=== PATIENT | male | born 1980 ===

== ENCOUNTER 2022-05-28 21:15 | Emergency (ER) | payer SELFPAY ==
--- NOTE | 2022-05-28 21:17 | XRR_ITS ---
PROCEDURE INFORMATION: Exam: XR Chest Exam date and time: 05/28/2022 9:26 PM Age: 41 years old Clinical indication: Pain; Other: Generalized cp TECHNIQUE: Imaging protocol: Radiologic exam of the chest. Views: 1 view. COMPARISON: No relevant prior studies available. FINDINGS: Lungs: Hypoinflation of the lungs with mild bibasilar atelectasis. Pleural spaces: Unremarkable. No pleural effusion. No pneumothorax. Heart/Mediastinum: Mild apparent cardiomegaly. Bones/joints: Unremarkable. XR/XR chest 1V portable [id number] IMPRESSION: Hypoinflation of the lungs with mild bibasilar atelectasis.
[2022-05-28 21:25] VITALS: BP 153/101; PULSE 101; RESP 20; TEMP 36.9; O2SAT 92; BMI 28.5
--- NOTE | 2022-05-28 21:26 | ECG_ITS ---
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 Measurements Intervals [place] Rate: 98 P: 29 HI: 146 QRS: 61 QRSD: 107 T: 20 QT: 334 QTc: 428 Interpretive Statements SINUS RHYTHM No previous ECG available for comparison Electronically Signed On 05-29-2022 17:31:09 CONFERENCE SPECIALIST by Gunner Ballard M.D. [id number]
--- NOTE | 2022-05-28 21:30 | ED_ITS ---
Documented by User: [email or web address] Hunter 05/29/22 02:11 HPI - Chest Pain General: Chief Complaint: Chest Pain Stated Complaint: Chest Pains Time Seen by Provider: 05/28/22 21:17 History of Present Illness: Patient is a 41-year-old male comes to the ED with chest pain. He has been having intermittent chest pain now for months and says he had chest pain yesterday and the day before and it resolved on its own. Today approximately 2 hours prior to arrival he was sweeping the floor and developed chest pain in the left side of his chest. He rates the pain currently a 7 out of 10. He has not taken any medications today such as his nitro. Pain worsens if he bends over. Denies any other symptoms. Associated symptoms: Deny abdominal pain, dyspnea, fever(s), nausea, palpitations or vomiting Review of Systems Const: Denies: fever(s), chills or fatigue Eyes: Denies: change in vision or eye discomfort ENMT: Denies: throat pain, odynophagia, nasal discharge or nasal congestion Card: Reports: chest pain; Denies: palpitations, edema, swelling of feet/ankles, dyspnea on exertion or orthopnea Resp: Denies: dyspnea, productive cough or non-productive cough GI: Denies: abdominal pain, nausea, vomiting, diarrhea, constipation or hematochezia : Denies: flank pain, difficulty urinating, dysuria or hematuria Musc: Denies: neck pain, back pain or extremity swelling Skin/Breast: Denies: rash or new lesions Neuro: Denies: headache(s), numbness in extremities or weakness in extremities [facility] ED PFSH: Medical History No pertinent family history Surgical History No pertinent past surgical history Physical Exam Const: COMMON NORMALS: patient oriented x3 and alert GENERAL APPEARANCE: cooperative HENMT: COMMON NORMALS: normocephalic HEAD & SCALP: normocephalic MOUTH: Normal oral and palatal mucosa present THROAT: posterior oropharynx normal and uvula midline Neck/C-Spine: COMMON NORMALS: supple GENERAL: Yes normal visual inspection Chest: CHEST: Yes tenderness pectoral muscle on the left with point tenderness laterally (Palpation recreates chest pain) Resp: COMMON NORMALS: normal respiratory effort, No retractions, No use of accessory muscles and clear to auscultation bilaterally AUSCULTATION: clear to auscultation bilaterally Cardio: COMMON NORMALS: regular rate, regular rhythm, S1 normal heart sound present, S2 normal heart sound present, No gallops present (Cardio), No clicks present (Cardio), No murmurs present (Cardio) and Peripheral pulses 2+ throughout RATE: regular rate RHYTHM: regular rhythm HEART SOUNDS: S1 normal heart sound present and S2 normal heart sound present PERIPHERAL PU LSES: Peripheral pulses 2+ throughout GI: COMMON NORMALS: Normal to inspection, nondistended, normoactive bowel sounds present, Soft to palpation, non-tender and no masses PALPATION: Yes Soft to palpation : COMMON NORMALS: Yes no CVA tenderness BLADDER/KIDNEY EXAM: Yes no CVA tenderness Back/Pelvis: COMMON NORMALS: no CVA tenderness Extremity: COMMON NORMALS: normal to inspection Neuro: COMMON NORMALS: patient oriented x3 SENSORIUM/ORIENTATION: Yes alert GAIT: Yes Normal gait present Skin: GENERAL SKIN EXAM: dry skin Course Vital Signs: Vital signs: Vital Signs Temperature 98.4 F 05/28/22 21:25 Pulse Rate 89 05/29/22 01:20 Respiratory Rate 19 H 05/29/22 01:20 Blood Pressure 151/98 05/29/22 01:20 Pulse Oximetry 89 L 05/29/22 01:20 Oxygen Delivery Me thod 05/29/22 00:00 MDM - Chest Pain Medical Decision Making Patient is a 41-year-old male comes to the ED with chest pain. He has been having intermittent chest pain now for months and says he had chest pain yesterday and the day before and it resolved on its own. Today approximately 2 hours prior to arrival he was sweeping the floor and developed chest pain in the left side of his chest. He rates the pain currently a 7 out of 10. Vitals stable. Patient appears nontoxic in no acute distress or pain. Patient has some tenderness to his left pectoralis muscle that reproduces chest pain. The rest of exam is benign. CBC and CMP are unremarkable. Troponins negative. BNP and D-dimer are normal. EKG shows normal sinus rhythm with no ST segment elevation or depression seen. Chest x-ray showed hypoinflation of the lungs. He was given a dose of 324 mg of aspirin and morphine here in the ED. His symptoms did improve some. he was then given a dose of Toradol and a muscle relaxer. Given that chest pain is reproducible with palpation and troponins negative, EKG showing no acute findings and D-dimer normal, patient diagnosed with noncardiac chest pain which is likely musculoskeletal in nature. He was stable for discharge home and sent with a prescription for ibuprofen 800 mg to help with pain. Follow-up with his PCP in the next week for reevaluation. Return to ED precautions given. Patient understood and agreed with plan. Lab Data I reviewed the patient's lab results. 05/28/22 21:38 05/28/22 21:38 Radiology Impressions Chest X-Ray 05/28/22 21: IMPRESSION: Hypoinflation of the lungs with mild bibasilar atelectasis. Laboratory Results WBC 7.1 10^3/uL (4.0-10.0) 05/28/22 21: RBC 5.07 10^6/uL (4.1-5.3) 05/28/22 21: Hgb 15.4 g/dL (11.7-16.6) 05/28/22 21: Hct 43.9 % (42.0-52.0) 05/28/22 21: MCV 86.6 fl (80-94) 05/28/22 21: MCH 30.4 pg (28.0-34.0) 05/28/22 21: MCHC 35.1 g/dL (30.0-36.0) 05/28/22 21: RDW 12.4 % (12.1-15.1) 05/28/22 21: Plt Count 204 10^3/cmm (130-400) 05/28/22 21: MPV 10.4 fL (7.4-10.4) 05/28/22 21: Neut % (Auto) 61.0 % 05/28/22 21: Lymph % (Auto) 30.2 % 05/28/22 21: [place] % (Auto) 7.1 % 05/28/22 21: Eos % (Auto) 1.0 % 05/28/22 21: Baso % (Auto) 0.4 % 02/26/23 21:38 Neut # (Auto) 4.32 10^3/uL (1.8-7.7) 05/28/22 21:38 Lymph # (Auto) 2.1 10^3/uL (0.8-4.8) 05/28/22 21:38 [place] # (Auto) 0.5 10^3/uL (0.2-0.9) 05/28/22 21:38 Eos # (Auto) 0.1 10^3/uL (0.0-0.8) 05/28/22 21:38 Baso # (Auto) 0.0 10^3/uL (0.0-0.1) 05/28/22 21:38 Nucleated RBC % (auto) 0 % 05/28/22 21:38 Nucleated RBCs # 0.0 /100WBC 05/28/22 21:38 D-Dimer <= 0.27 ug/mIFEU (0-0.59) 05/28/22 21:38 Sodium 138 mmol/L (136-145) 05/28/22 21:38 Potassium 3.4 mmol/L (3.5-5.1) L 05/28/22 21:38 Chloride 102 mmol/L (98-107) 05/28/22 21:38 Carbon Dioxide 23 mmol/L (22-29) 05/28/22 21:38 Anion Gap 16.4 (5-19) 05/28/22 21:38 BUN 13 mg/dL (6-20) 05/28/22 21:38 Creatinine 0.5 mg/dL (0.7-1.2) L 05/28/22 21:38 GFR Calculation 181.5 mL/min (90-130) H 05/28/22 21:38 Glucose 118 mg/dL (65-115) H 05/28/22 21:38 Calculated Osmolality 287 mOsm/kg (285-295) 05/28/22 21:38 Calcium 9.0 mg/dL (8.5-10.5) 05/28/22 21:38 Total Bilirubin 0.4 mg/dL (0.15-1.2) 05/28/22 21:38 AST 24 U/L (0-40) 05/28/22 21:38 ALT 29 U/L (0-41) 05/28/22 21:38 Alkaline Phosphatase 135 U/L (40-130) H 05/28/22 21:38 Troponin T Baseline 6 ng/L (0-15) 05/28/22 21:38 Troponin T 120 Minute 6.00 ng/L (0-15) 05/28/22 23:12 Delta Troponin T 0 ABS# (0-10) 05/28/22 23:12 NT-Pro-B Natriuret Pep 36 pg/mL (0-125) 05/28/22 21:38 Total Protein 7.4 g/dL (6.6-8.7) 05/28/22 21:38 Albumin 4.6 g/dL (3.5-5.2) 05/28/22 21:38 Globulin 2.8 g/dL (1.3-4.6) 05/28/22 21:38 EKG Data EKG 1: EKG interpretation date: 05/28/22 EKG interpretation time: 21:25 Interpretation: Sinus rhythm, 98 bpm, no ST segment elevation or depression seen. Discharge Plan Discharge Patient Disposition: Home Clinical Impression: Non-cardiac chest pain Condition: Stable Prescriptions: New ibuprofen 800 mg tablet 800 mg PO Q8H PRN (Reason: pain) Qty: 20 0RF Discharge Orders: Discharge ED (Routine); Ordered 05/29/22 Ordered By: Tevin Villeda Discharge Diet: Regular Discharge Activity: Increase activity as tolerated Patient Instructions: Noncardiac Chest Pain (ED) Activity Restrictions/Additional Instructions: Follow-up with medical provider as directed in the next 5 to 7 days for r eevaluation. Take medications as prescribed. Continue taking all home medications as previously prescribed. Return to the ER or your medical provider if condition worsens. Please read and understand discharge instructions. Thank you for choosing [facility] for your healthcare needs today. Please realize this is an emergency room and that we are providing you with a medical screening exam and this may not be complete and all inclusive of all the testing and or work up that you may need to determine your ailment or severity of your illness. It is very important that you follow up as instructed or that you return to the Emergency Department should you have concerns or if your condi tion changes or worsens in any way. 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 [employer] Documented by User: Laith Campos DO 05/29/22 03:53 HPI - Chest Pain General: Chief Complaint: Chest Pain Stated Complaint: Chest Pains Time Seen by Provider: 05/28/22 21:17 [facility] ED PFSH: Medical History No pertinent family history Surgical History No pertinent past surgical history Course Vital Signs: Vital signs: Vital Signs Temperature 98.4 F 05/28/22 21:25 Pulse Rate 89 05/29/22 01:20 Respiratory Rate 19 H 05/29/22 01:20 Blood Pressure 151/98 05/29/22 01:20 Pulse Oximetry 89 L 05/29/22 01:20 Oxygen Delivery Me thod 05/29/22 00:00 MDM - Chest Pain Medical Decision Making Patient is a 41-year-old male comes to the ED with chest pain. He has been having intermittent chest pain now for months and says he had chest pain yesterday and the day before and it resolved on its own. Today approximately 2 hours prior to arrival he was sweeping the floor and developed chest pain in the left side of his chest. He rates the pain currently a 7 out of 10. Vitals stable. Patient appears nontoxic in no acute distress or pain. Patient has so me tenderness to his left pectoralis muscle that reproduces chest pain. The rest of exam is benign. CBC and CMP are unremarkable. Troponins negative. BNP and D-dimer are normal. EKG shows normal sinus rhythm with no ST segment elevation or depression seen. Chest x-ray showed hypoinflation of the lungs. He was given a dose of 324 mg of aspirin and morphine here in the ED. His symptoms did improve some. he was then given a dose of Toradol and a muscle relaxer. Given that chest pain is reproducible with palpation and troponins negative, EKG showing no acute findings and D-dimer normal, patient diagnosed with noncardiac chest pain which is likely musculoskeletal in nature. He was stable for discharge home and sent with a prescription for ibuprofen 800 mg to help with pain. Follow-up with his PCP in the next week for reevaluation. Return to ED precautions given. Patient understood and agreed with plan. This patient was originally seen by Mr. Ronal PA-C.? I agree with his history, evaluation, and treatment. Lab Data 05/28/22 21:38 05/28/22 21:38 Radiology Impressions Chest X-Ray 05/28/22 21:17 IMPRESSION: Hypoinflation of the lungs with mild bibasilar atelectasis. Laboratory Results WBC 7.1 10^3/uL (4.0-10.0) 05/28/22 21: RBC 5.07 10^6/uL (4.1-5.3) 05/28/22 21: Hgb 15.4 g/dL (11.7-16.6) 05/28/22 21: Hct 43.9 % (42.0-52.0) 05/28/22 21: MCV 86.6 fl (80-94) 05/28/22 21: MCH 30.4 pg (28.0-34.0) 05/28/22 21: MCHC 35.1 g/dL (30.0-36.0) 05/28/22 21: RDW 12.4 % (12.1-15.1) 05/28/22 21: Plt Count 204 10^3/cmm (130-400) 05/28/22 21: MPV 10.4 fL (7.4-10.4) 05/28/22 21: Neut % (Auto) 61.0 % 05/28/22 21: Lymph % (Auto) 30.2 % 05/28/22 21: [place] % (Auto) 7.1 % 05/28/22 21: Eos % (Auto) 1.0 % 05/28/22 21: Baso % (Auto) 0.4 % 05/28/22 21: Neut # (Auto) 4.32 10^3/uL (1.8-7.7) 05/28/22 21: Lymph # (Auto) 2.1 10^3/uL (0.8-4.8) 05/28/22 21:38 [place] # (Auto) 0.5 10^3/uL (0.2-0.9) 05/28/22 21:38 Eos # (Auto) 0.1 10^3/uL (0.0-0.8) 05/28/22 21:38 Baso # (Auto) 0.0 10^3/uL (0.0-0.1) 05/28/22 21:38 Nucleated RBC % (auto) 0 % 05/28/22 21:38 Nucleated RBCs # 0.0 /100WBC 05/28/22 21:38 D-Dimer <= 0.27 ug/mIFEU (0-0.59) 05/28/22 21:38 Sodium 138 mmol/L (136-145) 05/28/22 21:38 Potassium 3.4 mmol/L (3.5-5.1) L 05/28/22 21:38 Chloride 102 mmol/L (98-107) 05/28/22 21:38 Carbon Dioxide 23 mmol/L (22-29) 05/28/22 21:38 Anion Gap 16.4 (5-19) 05/28/22 21:38 BUN 13 mg/dL (6-20) 05/28/22 21:38 Creatinine 0.5 mg/dL (0.7-1.2) L 05/28/22 21:38 GFR Calculation 181.5 mL/min (90-130) H 05/28/22 21:38 Glucose 118 mg/dL (65-115) H 05/28/22 21:38 Calculated Osmolality 287 mOsm/kg (285-295) 05/28/22 21:38 Calcium 9.0 mg/dL (8.5-10.5) 05/28/22 21:38 Total Bilirubin 0.4 mg/dL (0.15-1.2) 05/28/22 21:38 AST 24 U/L (0-40) 05/28/22 21:38 ALT 29 U/L (0-41) 05/28/22 21:38 Alkaline Phosphatase 135 U/L (40-130) H 05/28/22 21:38 Troponin T Baseline 6 ng/L (0-15) 05/28/22 21:38 Troponin T 120 Minute 6.00 ng/L (0-15) 05/28/22 23:12 Delta Troponin T 0 ABS# (0-10) 05/28/22 23:12 NT-Pro-B Natriuret Pep 36 pg/mL (0-125) 05/28/22 21:38 Total Protein 7.4 g/dL (6.6-8.7) 05/28/22 21:38 Albumin 4.6 g/dL (3.5-5.2) 05/28/22 21:38 Globulin 2.8 g/dL (1.3-4.6) 05/28/22 21:38 Discharge Plan Discharge Patient Disposition: Home Clinical Impression: Non-cardiac chest pain Condition: Stable Prescriptions: New ibuprofen 800 mg tablet 800 mg PO Q8H PRN (Reason: pain) Qty: 20 0RF Discharge Orders: Discharge ED (Routine); Ordered 05/29/22 Ordered By: Tevin Villeda Discharge Diet: Regular Discharge Activity: Increase activity as tolerated Patient Instructions: Noncardiac Chest Pain (ED) Activity Restrictions/Additional Instructions: Follow-up with medical provider as directed in the next 5 to 7 days for reevaluation. Take medications as prescribed. Continue taking all home medications as previously prescribed. Return to the ER or your medical provider if condition worsens. Please read and understand discharge instructions. Thank you for choosing [facility] for your healthcare needs today. Please realize this is an emergency room and that we are providing you with a medical screening exam and this may not be complete and all inclusive of all the testing and or work up that you may need to determine your ailment or severity of your illness. It is very important that you follow up as instructed or that you return to the Emergency Department should you have concerns or if your condition changes or worsens in any way. 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
[2022-05-28] MEDS: aspirin 81 mg Chew Tablet 324 MG PO (21:35)
[2022-05-28 21:40] VITALS: RESP 22; O2SAT 90
[2022-05-28] MEDS: morphine 4 mg/mL SDV 1 mL IVP (21:40)
[2022-05-28 21:48] VITALS: BP 136/88; PULSE 100; RESP 22; O2SAT 90
[2022-05-28 21:51] LABS: Basophils % 0.4 %; Eosinophils # 0.1 10^3/uL (0.0-0.8); Hematocrit 43.9 % (42.0-52.0); Hemoglobin 15.4 g/dL (11.7-16.6); Lymphocytes # 2.1 10^3/uL (0.8-4.8); Lymphocytes % 30.2 %; Mean Corpuscular HGB Conc 35.1 g/dL (30.0-36.0); Mean Corpuscular Hemoglobin 30.4 pg (28.0-34.0); Mean Corpuscular Volume 86.6 fl (80-94); Mean Platelet Volume 10.4 fL (7.4-10.4); Monocytes # 0.5 10^3/uL (0.2-0.9); Monocytes % 7.1 %; Neutrophils # 4.32 10^3/uL (1.8-7.7); Nucleated Red Blood Cells % 0 %; Platelet Count 204 10^3/cmm (130-400); Red Blood Count 5.07 10^6/uL (4.1-5.3); Red Cell Distribution Width 12.4 % (12.1-15.1); White Blood Count 7.1 10^3/uL (4.0-10.0)
[2022-05-28 22:13] LABS: Troponin(5th) Baseline 6 ng/L (0-15)
[2022-05-28 22:18] LABS: Alanine Aminotransferase 29 U/L (0-41); Albumin Level 4.6 g/dL (3.5-5.2); Alkaline Phosphatase 135 U/L (40-130); Anion Gap 16.4 (5-19); Aspartate Amino Transferase 24 U/L (0-40); Blood Urea Nitrogen 13 mg/dL (6-20); Carbon Dioxide 23 mmol/L (22-29); Chloride 102 mmol/L (98-107); Globulin 2.8 g/dL (1.3-4.6); Glomerular Filtration Rate 181.5 mL/min (90-130); Glucose 118 mg/dL (65-115); NT Pro B Type Natriuretic Pept 36 pg/mL (0-125); Osmolality Calculated 287 mOsm/kg (285-295); Potassium 3.4 mmol/L (3.5-5.1); Sodium 138 mmol/L (136-145); Total Bilirubin 0.4 mg/dL (0.15-1.2); Total Protein 7.4 g/dL (6.6-8.7)
[2022-05-28 23:11] LABS: D Dimer <= 0.27 ug/mIFEU (0-0.59)
[2022-05-28] MEDS: ipratropium-albuterol 3 mL Neb 6 ML INHALATION (23:51)
[2022-05-28 23:57] VITALS: PULSE 87; RESP 16; O2SAT 96
[2022-05-29] VITALS: BP 151/98; PULSE 89; RESP 19; O2SAT 89
[2022-05-29] MEDS: orphenadrine 30 mg/mL Inj 2 mL 60 MG IVP
[2022-05-29] MEDS: ketorolac 30 mg/mL INJ IVP
[2022-05-29 00:05] LABS: Troponin 5 2HR Delta 0 ABS# (0-10)
[2022-05-29 01:20] VITALS: BP 151/98; PULSE 89; RESP 19; O2SAT 89
== END 2022-05-29 00:27 | disposition home or self-care (01) ==
PROVIDERS: Emergency Medicine; Emergency Provider Physician Assistant
DX: R07.89 Other chest pain (principal)
CPT/HCPCS: 71045; 80053; 83880; 84484; 85025; 85378; 93005; 94640; 96374; 96375; 99285; J1885; J2270; J2360